=== PATIENT | male | born 1955 | race Caucasian/White ===

== ENCOUNTER 2021-03-23 19:23 | Emergency (ER) | payer BC, SELFPAY ==
--- NOTE | ~2021-03-23 | CT_ITS ---
EXAMINATION: CT abdomen pelvis wo con DATE: 03/23/2021 21:31 INDICATION: Right flank pain. History of kidney stones. TECHNIQUE: Computed tomography (CT) of the abdomen and pelvis was performed without intravenous contr ast. The dose-length product was 214.45 mGy-cm. Automated exposure control and iterative reconstructi on technique were employed. COMPARISON: None. FINDINGS: Lung bases are unremarkable. Heart size is normal. No significant pleural or pericardial ef fusion. There are abnormal lymph nodes along the lesser curvature of the stomach which are increased in number. Fatty infiltration of the liver. The spleen, pancreas, adrenal glands there is a 2.4 cm lo w-density lesion of the left kidney, most likely benign cyst. The right kidney is unremarkable. No si gnificant hydronephrosis. Prostate gland is enlarged. There is bladder wall thickening. Nonobstructiv e bowel gas pattern. No free air or free fluid. No acute osseous abnormality. Mild lumbar spondylosis . IMPRESSION: 1. Bladder wall thickening which may be due to outlet obstruction from enlarged prostate gland and/or cystitis. 2: Lymphadenopathy along the lesser curvature of the stomach, nonspecific. Reviewed, dictated and finalized at location A.
[2021-03-23 19:26] VITALS: BP 148/103; PULSE 120; RESP 16; TEMP 36.2; O2SAT 96
[2021-03-23 19:44] LABS: Basophils Percent Auto 0.3 % (0.2-1.2); Eosinophils Absolute Auto 0.1 K/mm3 (0-0.3); Eosinophils Percent Auto 0.5 % (0-4.4); Hematocrit 55.8 % (42.0-52.0); Hemoglobin 19.3 g/dL (14.0-18.0); Immature Granulocyte Absolute 0.05 K/mm3 (0.00-0.031); Immature Granulocyte Percent A 0.4 % (0-0.5); Lymphocytes Absolute Auto 2.09 K/mm3 (0.9-3.2); Lymphocytes Percent Auto 17.2 % (18.3-44.2); Mean Corpuscular HGB Conc 34.6 g/dl (32-36); Mean Corpuscular Hemoglobin 31.2 pg (26-34); Mean Corpuscular Volume 90.3 fl (80-100); Mean Platelet Volume 10.6 fl (7.4-10.4); Monocytes Percent Auto 8.3 % (2.6-8.5); Neutrophils Absolute Auto 8.9 K/mm3 (1.3-6.7); Neutrophils Percent Auto 73.3 % (45.5-73.1); Platelet Count Result 227 k/mm3 (150-375); Red Blood Count 6.18 M/mm3 (4.6-6.20); Red Cell Distribution Width 13.1 % (11.5-14.5); White Blood Count 12.2 K/mm3 (4.5-10.0)
[2021-03-23 20:05] LABS: Alanine Aminotransferase 42 U/L (4-50); Albumin Level 4.7 g/dL (3.5-5.1); Alkaline Phosphatase 97 U/L (38-126); Anion Gap 12 mmol/L (8-16); Aspartate Amino Transferase 36 U/L (17-59); Bilirubin,Total 1.1 mg/dL (0.2-1.3); Blood Urea Nitrogen 17 mg/dL (9-20); Calcium 9.8 mg/dL (8.4-10.2); Carbon Dioxide 23 mmol/L (22-30); Chloride 104 mmol/L (98-107); Estimated CRCL calculation 61 ml/min; Estimated Glomerular Filt Rate > 60; Glucose 160 mg/dL (75-110); Lipase 114 U/L (23-300); Potassium 3.9 mmol/L (3.4-5.0); Sodium 139 mmol/L (137-145)
[2021-03-23 20:58] LABS: Add Urine Microscopic? YES; Appearance Urine Cloudy (Clear); Bilirubin Urine Negative (Negative); Blood Urine 2+ (Negative); Color Urine Amber (Yellow); Glucose Urine UA Negative (Negative); Ketones Urine Negative (Negative); Leukocyte Esterase Ur Negative LEU/UL (Negative); Mucus Urine Heavy /lpf; Nitrate Urine Negative (Negative); Protein Urine 2+ mg/dL (Negative); Specific Grav Ur 1.027 (1.001-1.035); Squamous Epithelial Cell Urine Occasional /hpf (Few); Urobilinogen Urine Negative mg/dL (<2.0)
[2021-03-23] MEDS: SODIUM CHLORIDE 0.9% IV 1,000 ML 999 ML IV CONT (21:17)
--- NOTE | 2021-03-23 21:22 | ED.BACK ---
HPI - Back Pain/Injury General Chief Complaint: Back Pain/Injury Stated Complaint: kidney pain Time Seen by Provider: 03/23/21 21:04 Source: patient Mode of arrival: ambulatory Limitations: no limitations History of Present Illness HPI Narrative: Patient is a 65-year-old male complaining of right flank pain, 8 out of 10, sharp, nonradiating that started today. Patient states that he is not able to urinate as much. Patient does admit to having an enlarged prostate. Denies any history of kidney stones. Denies any chest pain, shortness of breath, abdominal pain, nausea, vomiting, diarrhea, urinary symptoms, fever or chills. Review of Systems Review of Systems: All systems reviewed & are unremarkable except as noted in HPI and below Constitutional: Constitutional: Denies body ache(s), Denies chills, Denies excessive sweating, Denies fatigue, Denies fever(s), Denies headache(s), Denies lethargy, Denies malaise, Denies weakness and Denies weight loss Eyes: Eyes: Denies blurry vision, Denies change in vision and Denies loss of vision ENT: Denies dizziness, Denies ear discharge, Denies headache(s), Denies lip swelling, Denies epistaxis, Denies nasal congestion, Denies neck pain, Denies throat swelling and Denies tongue swelling Cardiovascular: Cardiovascular: Denies chest pain, Denies chest pain at rest, Denies chest pain with activity, Denies diaphoresis, Denies rapid heart rate, Denies edema, Denies irregular heart rhythm, Denies lightheadedness, Denies palpitations, Denies dyspnea and Denies dyspnea on exertion Respiratory: Respiratory: Denies chest congestion, Denies cough, Denies hemoptysis, Denies dyspnea and Denies dyspnea on exertion Gastrointestinal: Gastrointestinal: Denies abdominal pain, Denies melena, Denies hematochezia, Denies diarrhea, Denies nausea, Denies vomiting and Denies hematemesis Musculoskeletal: Musculoskeletal: Denies abnormal gait, Denies deformity, Denies joint swelling, Denies limited range of motion, Denies neck pain and Denies numbness Neurologic: Denies Abnormal speech present, Denies abnormal gait, Denies confusion, Denies dizziness, Denies headache(s), Denies focal weakness, Denies loss of vision, Denies numbness, Denies Other visual disturbances, Denies Sensory deficit (Neuro) and Denies weakness Psychiatric: Psychiatric: Denies confusion, Denies depression, Denies auditory hallucinations, Denies homicidal ideation and Denies suicidal ideation Endocrine: Endocrine: Denies cold intolerance, Denies excessive sweating, Denies fatigue, Denies heat intolerance and Denies palpitations Hematologic/Lymphatic: Hematologic/Lymphatic: Denies easy bleeding and Denies easy bruising Allergic/Immunologic: Allergic/Immunologic: Denies lip swelling, Denies throat swelling and Denies tongue swelling Exam Const: General: cooperative, healthy appearing, comfortable, no acute distress, well developed, alert and awake; No confusion Orientation/consciousness: oriented to person, oriented to place, oriented to time, patient oriented x3 and No confusion Limitations: no limitations HENMT: Head: normal to inspection, normocephalic and atraumatic Ears: hearing grossly normal bilaterally, TM normal on the right and TM normal on the left General nose exam: Normal external nose present, Normal nares present and No nasal discharge present Face and sinus: normal facial exam Mouth: Yes Normal oral and palatal mucosa present, Yes lip normal, Yes tongue normal and Yes oropharynx normal Throat: posterior oropharynx normal, tonsils normal and uvula midline Eyes: General: appearance normal, both eyes and all related structures Pupils: Equal, round and reactive pupils present EOM: EOMs intact bilaterally Neck: Neck: normal visual inspection, full ROM, no lymphadenopathy and no meningeal signs Chest: Chest palpation & inspection: normal inspection of the chest Resp: Effort & Inspection: normal respiratory effort, able to speak in complete sente
[2021-03-23 23:13] VITALS: BP 141/106; PULSE 110; RESP 20
[2021-03-23] MEDS: HYDROcodone/acetaminophen (*CRX) 5-325 MG TABLET 1 TAB PO (23:47)
[2021-03-23] MEDS: TAMSULOSIN HCL 0.4 MG CAPSULE PO (23:47)
[2021-03-23] MEDS: KETOROLAC 30 MG/ML VIAL (*BKC) IV PUSH (23:48)
--- NOTE | 2021-03-24 00:20 | PC.NURSE ---
Aguilar cath placed. Pt voids 250 ml then cath is placed and 300 ml removed. Pt tolerated procedure well. Cath secured and leg bag provided with teaching on care. 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
[2021-03-24 00:22] VITALS: BP 138/98; PULSE 106; RESP 18; O2SAT 97
== END 2021-03-24 00:23 | disposition home or self-care (01) ==
PROVIDERS: General Practice; Emergency Provider Emergency Medicine
DX: N30.01 Acute cystitis with hematuria (principal); N40.0 Benign prostatic hyperplasia without lower urinary tract symptoms
CPT/HCPCS: 36415; 51702; 74176; 80053; 81001; 83690; 85025; 96361; 96374; 99284; A9270; J1885; J7030

== ENCOUNTER 2021-03-24 07:27 | Emergency (ER) | payer BC, SELFPAY ==
[2021-03-24 07:43] VITALS: BP 133/86; PULSE 110; RESP 18; TEMP 36.7; O2SAT 100
--- NOTE | 2021-03-24 07:43 | ED.MALEGU ---
HPI - Male Genitourinary General Chief complaint: Urogenital-Male Stated complaint: catheter leaking, hematuria Time Seen by Provider: 03/24/21 07:42 Source: patient Mode of arrival: ambulatory Limitations: no limitations History of Present Illness HPI Narrative: Patient is a 65-year-old male, recently diagnosed with cystitis and urinary retention seen in our emergency department yesterday night, who presents this morning for evaluation of Busby catheter malfunction. Patient states the output from the Busby catheter has been bloody, and has had some leaking around the catheter. He denies any current pain. No chest pain, abdominal pain or flank pain. No fever, chills, nausea or vomiting. No trauma to the area. 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 He was given a first dose of antibiotics last night but has not yet filled his prescription this morning. Related Data Allergies Allergy/AdvReac Type Severity Reaction Status Date / Time No Known Allergies Allergy Verified 03/24/21 07:48 Review of Systems Review of Systems: Narrative: CONSTITUTIONAL: Denies fever, chills, or sweats. CARDIOVASCULAR: Denies chest pain RESPIRATORY: Denies cough or dyspnea. GASTROINTESTINAL: Denies abdominal pain, nausea, vomiting, or diarrhea. GENITOURINARY: Denies dysuria, reports hematuria SKIN: Denies rash or itching. MUSCULOSKELETAL: Denies back pain, joint pain, or myalgia. NEUROLOGIC: Denies headache, numbness, or weakness. 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 EYES: PERRLA and EOMI. ENT: Nares clear, no rhinorrhea or epistaxis. Mucous membranes moist. NECK: Supple. CHEST: No respiratory distress, breathing even and non labored HEART: Regular rate, sinus rhythm ABDOMEN:Non distended, non tender : chronic indwelling busby catheter, gross hematuria EXTREMITIES: Normal range of motion. No edema. SKIN: Warm, dry, no rash. NEURO:No focal deficits. Alert and oriented x3 Course Vital Signs Vital signs: Vital Signs Temperature 36.7 C 03/24/21 07:43 Pulse Rate 110 H 03/24/21 07:43 Respiratory Rate 18 03/24/21 07:43 Blood Pressure 133/86 03/24/21 07:43 Pulse Oximetry 100 03/24/21 07:43 Temperature 36.7 C 03/24/21 07:43 Pulse Rate 103 H 03/24/21 09:07 Respiratory Rate 18 03/24/21 09:07 Blood Pressure 127/87 03/24/21 09:07 Pulse Oximetry 99 03/24/21 09:07 MDM - Male Genitourinary MDM Narrative Medical decision making narrative: Patient presenting for evaluation of hematuria in the presence of newly placed Busby catheter for urinary retention. Patient with no other symptoms. No pain or infectious type symptoms. Vital signs stable at the time of assessment. Laboratory results are repeated and are reassuring. Downtrending leukocytosis, no kidney injury. Urinalysis is consistent with hematuria without other signs of infection. Regardless, patient was given a dose of antibiotics in the ER last night and sent home with a prescription for Bactrim. I encouraged patient to fill this today and to take it as prescribed. No other signs of acute changes from course overnight. Patient was discharged home, instructed on to how to care for Busby catheter and that blood can be normal in the presence of a newly placed catheter. No nephrolithiasis or other acute findings on review of CT scan from yesterday, thus a repeat imaging
[2021-03-24 08:30] LABS: Basophils Percent Auto 0.3 % (0.2-1.2); Eosinophils Percent Auto 0.1 % (0-4.4); Hematocrit 48.3 % (42.0-52.0); Hemoglobin 16.3 g/dL (14.0-18.0); Immature Granulocyte Absolute 0.07 K/mm3 (0.00-0.031); Immature Granulocyte Percent A 0.6 % (0-0.5); Lymphocytes Absolute Auto 1.34 K/mm3 (0.9-3.2); Lymphocytes Percent Auto 11.4 % (18.3-44.2); Mean Corpuscular HGB Conc 33.7 g/dl (32-36); Mean Corpuscular Hemoglobin 30.5 pg (26-34); Mean Corpuscular Volume 90.4 fl (80-100); Mean Platelet Volume 10.9 fl (7.4-10.4); Monocytes Absolute Auto 1.1 K/mm3 (0.1-0.6); Monocytes Percent Auto 9.6 % (2.6-8.5); Neutrophils Absolute Auto 9.2 K/mm3 (1.3-6.7); Platelet Count Result 187 k/mm3 (150-375); Red Blood Count 5.34 M/mm3 (4.6-6.20); White Blood Count 11.8 K/mm3 (4.5-10.0)
[2021-03-24 08:39] LABS: Anion Gap 7 mmol/L (8-16); Blood Urea Nitrogen 22 mg/dL (9-20); Calcium 9.1 mg/dL (8.4-10.2); Carbon Dioxide 26 mmol/L (22-30); Chloride 104 mmol/L (98-107); Estimated CRCL calculation 52 ml/min; Estimated Glomerular Filt Rate 55; Glucose 183 mg/dL (75-110); Potassium 4.2 mmol/L (3.4-5.0); Sodium 137 mmol/L (137-145)
[2021-03-24 09:02] LABS: Add Urine Microscopic? YES; Appearance Urine Cloudy (Clear); Bilirubin Urine Negative (Negative); Blood Urine 3+ (Negative); Color Urine Red (Yellow); Glucose Urine UA 1+ mg/dL (Negative); Ketones Urine Trace mg/dL (Negative); Leukocyte Esterase Ur Negative LEU/UL (Negative); Mucus Urine Heavy /lpf; Nitrate Urine Negative (Negative); Protein Urine 2+ mg/dL (Negative); RBC Urine >75 /hpf (0-2); Urobilinogen Urine Negative mg/dL (<2.0); WBC Urine >75 /hpf
[2021-03-24 09:03] LABS: Specific Grav Ur 1.031 (1.001-1.035)
[2021-03-24 09:07] VITALS: BP 127/87; PULSE 103; RESP 18; O2SAT 99
== END 2021-03-24 09:45 | disposition home or self-care (01) ==
PROVIDERS: Emergency Provider Emergency Medicine
DX: T83.011A Breakdown (mechanical) of indwelling urethral catheter, initial encounter (principal); R31.9 Hematuria, unspecified
CPT/HCPCS: 36415; 80048; 81001; 85025; 87086; 99283